=== PATIENT | female | born 1985 | race Caucasian/White ===

== ENCOUNTER 2016-07-08 02:33 | Emergency (ER) | payer BC, OTHER ==
[2016-07-08 02:53] VITALS: BP 136/79; PULSE 99; TEMP 97.8; BMI 31.8
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
== END 2016-07-08 04:23 | disposition home or self-care (01) ==
LOC: JER 02:33
DX: O26.892 Other specified pregnancy related conditions, second trimester (principal); Z3A.16 16 weeks gestation of pregnancy; F41.9 Anxiety disorder, unspecified
CPT/HCPCS: 99281-25

== ENCOUNTER 2019-10-27 09:39 | Emergency (ER) | payer OTHER ==
--- NOTE | 2019-10-27 09:44 | PDOC ---
History of Present Illness - General Stated Complaint: ABD.PAIN Time Seen by Provider: 10/27/19 09:44 - History of Present Illness Initial Comments: 10/27/19 10:01 33 year old with no pmhx who presents with several weeks of upper abdominal pain after eating greasy foods. She rates the pain 8/10 now constant since 3 days previously self resolved. She denies any chest pain, shortness of breath, vomiting, diarrhea or any other complaints. ROS GENERAL/CONSTITUTIONAL: No fever or chills. No weakness. HEAD, EYES, EARS, NOSE AND THROAT: No change in vision. No ear pain or discharge. No sore throat. CARDIOVASCULAR: No chest pain or shortness of breath RESPIRATORY: No cough, wheezing, or hemoptysis. GASTROINTESTINAL: No nausea, vomiting, diarrhea or constipation. GENITOURINARY: No dysuria, frequency, or change in urination. MUSCULOSKELETAL: No joint or muscle swelling or pain. No neck or back pain. SKIN: No rash NEUROLOGIC: No headache, vertigo, loss of consciousness, or change in strength/sensation. ENDOCRINE: No increased thirst. No abnormal weight change HEMATOLOGIC/LYMPHATIC: No anemia, easy bleeding, or history of blood clots. ALLERGIC/IMMUNOLOGIC: No hives or skin allergy. PE GENERAL: Awake, alert, and fully oriented, in no acute distress HEAD: No signs of trauma, normocephalic, atraumatic EYES: EOMI, sclera anicteric, conjunctiva clear ENT: oropharynx clear without exudates. Moist mucosa NECK: Normal ROM, supple LUNGS: No distress, speaks full sentences, clear to auscultation bilaterally HEART: Regular rate and rhythm, normal S1 and S2, no murmurs, rubs or gallops, peripheral pulses normal and equal bilaterally. ABDOMEN: Soft, + RUQ ttp, + barnhart's No guarding, no rebound. No masses EXTREMITIES : Normal inspection, Normal range of motion, no edema. No clubbing or cyanosis. NEUROLOGICAL: Cranial nerves II through XII grossly intact. Normal speech, normal gait, no focal sensorimotor deficits SKIN: Warm, Dry, normal turgor, no rashes or lesions noted Assessment and Plan 33 year old with no pmhx who presents with several weeks of upper abdominal pain after eating greasy foods. Consider cholelithiasis vs cholecystitis, r/o pancreatitis. cbc, cmp, lipase fluids, tlynoel labs wnl US with cholelithiasis without signs of cholecystitis Patient feels improved after pain control, abdominal exam nontender D.C with surgery f/u and strict return precautions Mary Kate Farooq, PGY3 Emergency Medicine Past History - Medical History Allergies/Adverse Reactions: Allergies Allergy/AdvReac Type Severity Reaction Status Date / Time No Known Allergies Allergy Verified 10/27/19 09:52 Home Medications: Ambulatory Orders NK [No Known Home Medication] 07/08/16 - Psycho-Social/Smoking History Smoking History: Never smoked ED Treatment Course - LABORATORY CBC & Chemistry Diagram: 10/27/19 10:00 10/27/19 10:02 Discharge - Discharge Information Problems reviewed: Yes Clinical Impression/Diagnosis: Gallstones Condition: Improved Disposition: HOME - Follow up/Referral Referrals: Altaf Diehl MD [Staff Physician] - Davey Avila [Primary Care Provider] - - Patient Discharge Instructions Patient Printed Discharge Instructions: Gallstones, DI for Gallstones Additional Instructions: Alternate Tylenol and Motrin as directed on package. Drink plenty of fluids. No fatty foods. Follow-up with Dr. Diehl surgery within 1 week. Return to the emergency department immediately for any fever chills nausea vomiting severe worsening pain or for any concerns. - Post Discharge Activity Work/Back to School Note: Back to Work
[2019-10-27 09:55] VITALS: TEMP 98.7; BMI 32.4
[2019-10-27 10:15] LABS: BASO % 0.5 % (0-2.0); EOS % 3.4 % (0-4.5); HEMATOCRIT 39.5 % (32.4-45.2); HEMOGLOBIN 13.3 GM/dL (10.7-15.3); LYMPH % 26.7 % (8-40); MCH 29.1 pg (25.7-33.7); MCHC 33.5 g/dl (32.0-36.0); MEAN CELL VOLUME 86.8 fl (80-96); MEAN PLT VOLUME 8.5 fl (7.5-11.1); MONO % 5.5 % (3.8-10.2); NEUT % 63.9 % (42.8-82.8); PLATELET COUNT 245 K/MM3 (134-434); RBC 4.56 M/mm3 (3.60-5.2); RDW 14.8 % (11.6-15.6); WHITE BLOOD COUNT 7.2 K/mm3 (4.0-10.0)
[2019-10-27] MEDS ORDERED: ACETAMINOPHEN 1000 MG/100 ML VIAL (NON FORMULARY) IVPB ONE (10:15)
[2019-10-27] MEDS ORDERED: ACETAMINOPHEN INJECTION 100 ML IVPB ONE (10:17)
[2019-10-27 10:31] LABS: INR 1.13 (0.83-1.09); PROTHROMBIN TIME (PATIENT) 13.4 SEC (9.7-13.0)
[2019-10-27 10:33] LABS: ACTIVATED PTT 31.5 SECONDS (25.2-36.5)
[2019-10-27 10:47] LABS: ALBUMIN 3.9 g/dl (3.4-5.0); BILIRUBIN,TOTAL 0.4 mg/dL (0.2-1); BLOOD UREA NITROGEN 9.1 mg/dL (7-18); CALCIUM 8.8 mg/dL (8.5-10.1); CREATININE 0.9 mg/dL (0.55-1.3); POTASSIUM 4.3 mmol/L (3.5-5.1); TOT PROT 7.5 g/dl (6.4-8.2)
--- NOTE | 2019-10-27 11:19 | PDOC ---
Documentation entered by Yessenia Stout SCRIBE, acting as scribe for Milton Gomez MD. Milton Gomez MD: This documentation has been prepared by the Girish viveros Brenda, SCRIBE, under my direction and personally reviewed by me in its entirety. I confirm that the documentation accurately reflects all work, treatment, procedures, and medical decision making performed by me. Attending Attestation - Resident Resident Name: Mary Kate Farooq - ED Attending Attestation I have performed the following: I have examined & evaluated the patient, The case was reviewed & discussed with the resident, I agree w/resident's findings & plan, Exceptions are as noted - HPI HPI: 10/27/19 11:09 The patient is a 33 year old female with a significant PMH of who presents to the emergency department with The patient denies chest pain, shortness of breath, headache and dizziness. Denies fever, chills, nausea, vomiting, diarrhea and constipation. Denies dysuria, frequency, urgency and hematuria. Allergies: NKA Past surgical history: Social history: No reported hx of tobacco use, alcohol use or illicit drug use. PCP: - Physicial Exam PE: 10/27/19 13:00 Vitals: Triage Vital signs reviewed General Appearance: No acute distress, well nourished well developed, Head: Atraumatic, Cardiac: Regular rate and rhythym, no murmurs, no rubs, no gallops, Lungs: Clear to auscultation bilateral, good air movement bilaterally, Abdomen: Soft, non distended, Mild right upper quadrant tenderness palpation no rebound no guarding Extremities: Full range of motion to all extremities, no cyanosis, clubbing, or edema Skin: Warm and dry, no rashes or lesions, no rash, no petechiae Psych: Normal mood, normal affect - Medical Decision Making 10/27/19 13:01 1 year history of right upper quadrant pain with meals now worse over the last week Mild right upper quadrant pain on examination Labs within normal limits no fever no white count no elevated LFTs status post Tylenol patient feels much better repeat abdominal examination benign at this time there is no tenderness palpation on repeat exam Ultrasound demonstrates stones but no evidence of acute cholecystitis Discussed with patient staying in the hospital for surgical consultation she feels better would like to try to manage this at home with change in diet I have provided her with surgery for follow-up. She will return to the ED immediately for any returning pain persistent pain fever chills vomiting or any worsening symptoms Findings, the need for follow-up and strict return instructions discussed with patient. Discharge - Discharge Information Problems reviewed: Yes Clinical Impression/Diagnosis: Gallstones - Admission No - Follow up/Referral Referrals: Davey Avila [Primary Care Provider] - Altaf Diehl MD [Staff Physician] - - Patient Discharge Instructions Patient Printed Discharge Instructions: Gallstones, DI for Gallstones Additional Instructions: Alternate Tylenol and Motrin as directed on package. Drink plenty of fluids. No fatty foods. Follow-up with Dr. Diehl surgery within 1 week. Return to the emergency department immediately for any fever chills nausea vomiting severe worsening pain or for any concerns. - Post Discharge Activity Work/Back to School Note: Back to Work
[2019-10-27 12:07] LABS: EPI CELLS 10 /uL (0-25.1); HYALINE CASTS 1 /uL (0-3.1); URINE APPEARANCE CLEAR; URINE BACTERIA 1872 /uL (0-1359); URINE BILIRUBIN NEGATIVE (NEGATIVE); URINE COLOR YELLOW; URINE GLUCOSE (UA) NEGATIVE (NEGATIVE); URINE KETONE NEGATIVE (NEGATIVE); URINE LEUK ESTERASE 1+ (NEGATIVE); URINE NITRITE NEGATIVE (NEGATIVE); URINE PROTEIN NEGATIVE (NEGATIVE); URINE RBC 7 /uL (0-23.9); URINE UROBILINOGEN 0.2 mg/dL (0.2-1.0); URINE WBC 21 /uL (0-25.8)
[2019-10-27 13:09] VITALS: BP 150/71; PULSE 84
--- NOTE | 2019-10-27 15:08 | EKG ---
Test Reason : Blood Pressure : / mmHG Vent. Rate : 070 BPM Atrial Rate : 070 BPM P-R Int : 144 ms QRS Dur : 080 ms QT Int : 362 ms P-R-T Axes : 073 037 051 degrees QTc Int : 390 ms NORMAL SINUS RHYTHM POSSIBLE ANTERIOR INFARCT , AGE UNDETERMINED ABNORMAL ECG NO PREVIOUS ECGS AVAILABLE Confirmed by Garry Bear MD ([id number]) on 10/27/2019 3:07:32 PM Referred By: Confirmed By:Garry Bear MD
== END 2019-10-27 13:19 | disposition home or self-care (01) ==
LOC: JER 09:39
PROC: 3E0333Z Introduction of Anti-inflammatory into Peripheral Vein, Percutaneous Approach (ICD-10-PCS; principal; 2019-10-27)
DX: K80.20 Calculus of gallbladder without cholecystitis without obstruction (principal)
CPT/HCPCS: 36415; 71045-TC-FY; 76705-TC; 80053; 81003; 83690; 84703; 85025; 85610; 85730; 86850; 86900; 86901; 87086; 87186; 93005; 93010; 99285-25; J0131